=== PATIENT | female | born 1930 | race Hispanic/Latino ===

== ENCOUNTER → 2017-09-12 | Outpatient (CLI) | payer MEDICARE | END | disposition home or self-care (01) | LOC: SHCH 09:58 | PROVIDERS: ATTEND Internal Medicine Cardiovascular Disease | DX: I50.32 Chronic diastolic (congestive) heart failure (principal); I65.21 Occlusion and stenosis of right carotid artery; I34.0 Nonrheumatic mitral (valve) insufficiency | CPT/HCPCS: 93306; 93880 ==